=== PATIENT | male | born 1960 | race Caucasian/White ===

== ENCOUNTER → 2016-03-12 | Outpatient (CLI) | payer BC, OTHER ==
--- NOTE | 2016-03-12 08:48 | MRI ---
Study: MRI of the Left Knee. Indication: Diffuse left knee pain and swelling. Changes most pronounced posteriorly Technique: Multiplanar, multi sequence MRI of the left knee was obtained without intravenous contrast. Comparison: None. Findings: Mild mucoid degeneration ACL and PCL without acute tear. Mcl thickened and bowed indicating sequelae remote sprain. Lateral collateral ligament complex intact. Oblique undersurface and radial free edge tearing posterior horn/ root and body medial meniscus with 4 mm of extrusion of the body. Grade 2/3 chondral thinning central weight-bearing portions medial compartment mild grade 4 chondral loss and subchondral marrow change medial margin medial tibial plateau. Free edge fraying posterior horn and body lateral meniscus without high-grade tear defect. Focal grade 2/3 chondral thinning central aspects lateral compartment with less pronounced changes more peripherally. Insertional quadriceps tendinosis noted as well as tendinosis throughout the patellar tendon. No tear. Patella normally located. Irregular grade 4 chondral loss at the patellar apex with patchy subchondral marrow change. Less pronounced grade 2/3 change throughout the remainder of the patellar articular cartilage. Moderate size knee effusion. No acute fracture or osseous contusion. Moderate size Jon's cyst with internal synovitis/ debris. In addition, along the posterolateral margin of the medial gastrocnemius musculature there is an ovoid 3.3 cm craniocaudal presumed fluid collection with a hypointense rim and internal septations. This likely reflects a chronic hematoma. Impression: Complex multidirectional tearing medial meniscus. Free edge fraying body and posterior horn lateral meniscus. Mild mucoid degeneration ACL and PCL. Remote MCL sprain. 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 Moderate size knee effusion. Moderate size Jon's cyst. Suspected chronic hematoma along the posterior margin of the medial head gastrocnemius musculature, however is ultimately nonspecific. Repeat examination with intravenous contrast could be performed to ensure no enhancement. Electronically signed by: Sin Null MD 03/12/2016 08:46
== END ==
LOC: MRI 07:00
PROVIDERS: ATTEND Family Medicine
DX: S83.242A Other tear of medial meniscus, current injury, left knee, initial encounter (principal); S83.412A Sprain of medial collateral ligament of left knee, initial encounter; M94.262 Chondromalacia, left knee; M71.22 Synovial cyst of popliteal space [Baker], left knee; M25.462 Effusion, left knee

== ENCOUNTER 2019-02-06 05:19 | Day surgery (SDC) | payer BC ==
[2019-02-06] MEDS ORDERED: MIDAZOLAM INJ 2 MG/2 ML VIAL ONE (12:37)
[2019-02-06] MEDS ORDERED: PROPARACAINE 0.5% OPHTH SOL 15 ML BTTL RIGHT_EYE ONE (12:39)
[2019-02-06] MEDS ORDERED: MOXIFLOXACIN HCL (OPHTH) 1 DROP DROPS RIGHT_EYE ONE ×3 (12:46→13:01)
[2019-02-06] MEDS ORDERED: LIDOCAINE 1% MPF 2 ML VIAL INJ ONE ×2 (12:46→12:50)
[2019-02-06] MEDS ORDERED: DEXAMETHASONE 0.1% OPHTH SOL 1 DROP RIGHT_EYE ONE ×3 (12:46→13:01)
[2019-02-06] MEDS ORDERED: TOBRAMYCIN SULF 0.3 % OPHT SOL 1 DROP RIGHT_EYE ONE ×3 (12:46→13:01)
[2019-02-06] MEDS ORDERED: BRIMONIDINE 0.2% OPHTH DROPS RIGHT_EYE ONE ×3 (12:47→13:01)
== END 2019-02-06 13:52 | disposition home or self-care (01) ==
LOC: AMB 05:19
PROVIDERS: ATTEND Ophthalmology
DX: H25.11 Age-related nuclear cataract, right eye (principal); I10 Essential (primary) hypertension
CPT/HCPCS: 00142; 66984; J2250